=== PATIENT | male | born 1985 | race Caucasian/White ===

== ENCOUNTER 2021-01-13 17:11 | Emergency (ER) | payer BC, SELFPAY ==
[2021-01-13 17:12] VITALS: BP 134/98; PULSE 118; RESP 12; TEMP 37.2; O2SAT 97; BMI 23.8
[2021-01-13 17:17] VITALS: BP 147/95; PULSE 116; RESP 12; TEMP 37.2; O2SAT 99
--- NOTE | 2021-01-13 17:20 | EKG12_ITS ---
Test Reason : PALPS Blood Pressure : / mmHG Vent. Rate : 102 BPM Atrial Rate : 102 BPM P-R Int : 148 ms QRS Dur : 074 ms QT Int : 312 ms P-R-T Axes : 070 074 052 degrees QTc Int : 406 ms Sinus tachycardia Otherwise normal ECG Confirmed by CARSON DELGADO, LAKEISHA ([id number]), digital editor JANY DEJESUS ([id number]) on 01/15/2021 11:27:42 AM Referred By: Confirmed By:LAKEISHA BYRD MD
[2021-01-13 17:27] LABS: Absolute Lymphocyte Count 2.19 X10^3/uL (0.83-4.51); Absolute Neutrophil Count 6.6 X10^3/uL (2.0-7.7); Basophil# 0.05 X10^3/uL; Basophil% 0.5 % (0-1); Eosinophil# 0.22 X10^3/uL; Eosinophils% 2.2 % (0-5); Hematocrit 51.1 % (40-54); Hemoglobin 17.9 g/dL (13.0-16.5); Lymphocyte # 2.19 X10^3/ul (0.83-4.51); Lymphocyte % 22.2 % (19-41); Mean Corpuscular Hgb 28.5 pg (27.0-32.0); Mean Corpuscular Volume 81.5 fL (80-94); Mean Platelet Vol. 8.8 fl (6.2-12.0); Monocyte# 0.76 X10^3/uL; Monocyte% 7.7 % (0-10); NRBC Flagged by Analyzer 0 % (0-5); Neutrophil # 6.56 X10^3/uL (2.7-7.7); Neutrophil % 66.6 % (47-70); Platelet Count 290 K/mm3 (150-450); RBC Distribution Width CV 12.1 % (11.6-14.6); RBC Distribution Width SD 35.9 fl (35.1-43.9); Red Blood Count 6.27 M/mm3 (4.6-6.2); White Blood Count 9.9 K/mm3 (4.4-11.0)
[2021-01-13 17:30] VITALS: O2SAT 95
--- NOTE | 2021-01-13 17:35 | RAD_ITS ---
STUDY: X-RAY CHEST REASON FOR EXAM: Male, 35 years old. Acute substernal chest pain TECHNIQUE: 2 AP portable views COMPARISON: None. FINDINGS: EKG leads overlie the chest The lungs are clear and expanded. There is no demonstrated pleural abnormality. Normal size heart. Normal mediastinum and anupama. Normal visualized pulmonary arteries. Normal visualized aortic arch and descending thoracic aorta. Normal visualized thoracic spine. Normal visualized ribs, clavicles, and shoulders. There is no demonstrated abnormality of the visualized soft tissue structures of the upper abdomen. RAD/Chest 1 View (Portable) IMPRESSION: Normal x-ray examination of the chest. Electronically Signed: Humble Mendoza MD at 17:56 EDT , Service support ,
[2021-01-13 17:43] LABS: Anion Gap 8 (5-15); BUN 13 mg/dL (7-18); BUN/Creat Ratio 13.4 RATIO (10-20); Calcium,Total 9.9 mg/dL (8.5-10.1); Chloride 101 mmol/L (98-107); Creatinine, Serum 0.97 mg/dL (0.70-1.30); EST Glomerular Filtration Rate 94 mL/min (>60); Est Glom Filt Rate - Afr Amer 113 mL/min (>60); Estimated Creatinine Clearance 116.67 ml/min; Glucose 121 mg/dL (74-106); Potassium 3.5 mmol/L (3.5-5.1); Sodium Level 137 mmol/L (136-145); Troponin-I HS 7 pg/mL (3.0-78.0)
[2021-01-13 18:17] LABS: Prothrombin Time (Protime)PT. 12.2 SECONDS (11.7-14.9)
--- NOTE | 2021-01-13 18:20 | NURSING ---
NO OLD EKGS
--- NOTE | 2021-01-13 18:30 | EX.ED.DYSGE1 ---
HPI History of Present Illness Chief Complaint: Palpitations Informant: patient Onset/Context/Timing Onset: Today Context: Sudden Onset Timing: Continuous Location: Heart Current Severity: Mild Worsened by: Nothing Relieved by: Nothing Associated Symptoms Associated Symptoms: near syncope Narrative Narrative: top carrier. No stimulants. Gilbert palpitations and HR was 130s to 140s at rest. No history of this. Near syncope but no other symptoms. History of HTN and GERD. Got steroids last week for poison yasmeen. No history of heart, lung disease, clots, thyroid disease etc. PFSH [facility] Medical History HTN (hypertension) Home Medications lisinopril 10 mg PO DAILY 01/13/21 [History Last Taken Unknown] omeprazole 20 mg PO DAILY 01/13/21 [History Last Taken Unknown] Allergy/AdvReac Type Severity Reaction Status Date / Time No Known Allergies Allergy Verified 01/13/21 17:16 Surgical History no surgical history Social History Smoking Status: Never smoker ROS ROS ED Constitutional Constitutional ED: Denies chills or fever(s) Eyes Eyes: Denies blurry vision or change in vision ENT ENT ED: Denies ear pain or rhinorrhea Cardiovascular Cardiovascular: Reports palpitations and racing heartbeat; Denies chest pain Respiratory/Chest Respiratory/Chest: Denies cough or dyspnea Gastrointestinal Gastrointestinal: Denies abdominal pain, nausea or vomiting Genitourinary Genitourinary ED: Denies dysuria or hematuria Musculoskeletal Musculoskeletal: Denies arthralgias or myalgias Integumentary Denies abscess or rash Neurologic Neurologic: Denies headache(s), paresthesias or weakness Psychiatric Psychiatric: Denies anxiety or depression Endocrine Endocrinology: Denies polydipsia or polyuria Allergic/Immunologic Allergic/Immunologic ED: Denies mouth swelling or urticaria EXAM Physical Exam Const Vital Signs: 01/13/21 17:12 01/13/21 17:17 01/13/21 17:30 Temperature 99.0 F 99.0 F Temperature Source Oral Oral Pulse Rate 118 H 116 H Respiratory Rate 12 12 Respiratory Effort Normal Non-Labored Respiratory Pattern Normal Blood Pressure 134/98 H 147/95 H Blood Pressure Mean 110 112 Pulse Ox 97 99 95 Oxygen Delivery Method Room Air Room Air Room Air Positive well nourished and well developed General Appearance ED: well developed HEENT Negative for trauma or tenderness Eyes EOMs intact bilaterally Neck supple Resp normal respiratory effort and clear to auscultation bilaterally Cardio regular rhythm; Negative for regular rate Rate: tachycardic GI normal to inspection, nondistended, normoactive bowel sounds Extremity normal to inspection General Extremety ED: Negative for edema or tenderness General Extremity: Negative for edema Neuro oriented x3 and CN's II-XII intact bilaterally Sensorium / Orientation: alert Psych mental status grossly normal Skin no rashes or lesions noted and no wounds MDM MDM MDM Narrative Medical decision making narrative: Patient presents with tachycardia in the 130s to 140s at home. He is 100-1 10 here, sinus rhythm. He had some near syncope but no other associated symptoms. EKG was unremarkable. Chest x-ray was normal. CBC, metabolic panel, thyroid, D-dimer, troponin all unremarkable. Repeat heart rate is 93. Other vitals are normal. Patient will be referred for outpatient follow-up with cardiology. Impression #1 palpitations Lab Data Attestation: I reviewed the patient's lab results. Labs: Laboratory Results - last 24 hr 01/13/21 01/13/21 01/13/21 16:52 16:52 16:52 WBC 9.9 RBC 6.27 H Hgb 17.9 H Hct 51.1 MCV 81.5 MCH 28.5 MCHC 35.0 RDW Std Deviation 35.9 RDW Coeff of Bo 12.1 Plt Count 290 MPV 8.8 Immature Gran % (Auto) 0.800 Neut % (Auto) 66.6 Lymph % (Auto) 22.2 [place] % (Auto) 7.7 Eos % (Auto) 2.2 Baso % (Auto) 0.5 Absolute Neuts (auto) 6.6 Absolute Lymphs (auto) 2.19 Nucleated RBC % 0 PT INR D-Dimer Quant (PE/DVT) Sodium 137 Potassium 3.5 Chloride 101 Carbon Dioxide 28.0 Anion Gap 8 BUN 13 Creatinine 0.97 Estim Creat Clear Calc 116.67 Est GFR (MDRD) Af Amer 113 Est GFR (MDRD) Non-Af 94 BUN/Creatinine Ratio 13.4 Glucose 121 H Calcium 9.9 Troponin I High Sens 7 TSH 1.30 01/13/21 01/13/21 17:55 17:55 WBC RBC Hgb Hct MCV MCH MCHC RDW Std Deviation RDW Coeff of Bo Plt Count MPV Immature Gran % (Auto) Neut % (Auto) Lymph % (Auto) [place] % (Auto) Eos % (Auto) Baso % (Auto) Absolute Neuts (auto) Absolute Lymphs (auto) Nucleated RBC % PT 12.2 INR 1.0 D-Dimer Quant (PE/DVT) <= 0.27 Sodium Potassium Chloride Carbon Dioxide Anion Gap BUN Creatinine Estim Creat Clear Calc Est GFR (MDRD) Af Amer Est GFR (MDRD) Non-Af BUN/Creatinine Ratio Glucose Calcium Troponin I High Sens TSH Radiography Chest X-Ray - ED: 1 View, Read by ED Physician and Normal Diagnostic Testing: Radiology Impression Chest X-Ray 01/13/21 17:35 IMPRESSION: Normal x-ray examination of the chest. Electronically Signed: Humble Mendoza MD at 17:56 EDT , Service support , EKG Initial EKG: Attestation: I personally reviewed and interpreted this EKG as follows: (Sinus, rate of 102, no sign of ischemia, infarction, or heart strain) Discharge Plan Triage Chief Complaint: Palpitations ED Provider: Dima Cox Dx/Rx/DC Orders Instructions: ED Palpitations Prescriptions: No Action lisinopril 10 mg Tablet 10 mg PO DAILY RF: 0 omeprazole 20 mg Tablet,Delayed Release (Dr/Ec) 20 mg PO DAILY RF: 0 Primary Care Provider: Ramona Cain Referrals: Neal Baca MD [STAFF PHYSICIAN] - Disposition Disposition: Home, Self Care
[2021-01-13 18:44] LABS: D-Dimer Quantitative (DVT/PE) <= 0.27 FEU/ug/m (0.27-0.49)
[2021-01-13 19:33] VITALS: BP 136/96; PULSE 97; RESP 18; O2SAT 97; O2SAT 98
== END 2021-01-13 19:35 | disposition home or self-care (01) ==
PROVIDERS: Emergency Provider Emergency Medicine; PCP Family Medicine
DX: R00.2 Palpitations (principal); R55 Syncope and collapse; I10 Essential (primary) hypertension; K21.9 Gastro-esophageal reflux disease without esophagitis; Z79.899 Other long term (current) drug therapy
CPT/HCPCS: 71045; 80048; 84443; 84484; 85025; 85379; 85610; 93005; 99285